=== PATIENT | female | born 1935 | race Caucasian/White ===

== ENCOUNTER 2018-12-12 16:17 | Emergency (ER) | payer OTHER ==
[~2018-12-12] VITALS: Ht 157.5 cm; Wt 52.2 kg
--- NOTE | 2018-12-12 18:45 | NUR ---
Patient discharged to home in stable conditon. Written and verbal after care instructions given. Patient AND verbalize understanding of instructions.WHEEL CHAIRED PT OUT TO CAR. Addendum: 12/12/18 at 1849 by ANGELA PT CONCERN ABOUT THE PT BP AT D/C,PER ER , PT NEEDS TO CONTINUE THE ROUTINE BP MED THAT IS DUE AT NIGHT AT HOME. PT DENEIS ANY DIZZINESS, HEADACHE OR N/V AT THIS TIME.
[2018-12-12 18:48] VITALS: BP 181/71
== END 2018-12-12 18:50 | disposition home or self-care (01) ==
LOC: ER 16:20
DX: S51.012A Laceration without foreign body of left elbow, initial encounter (principal); S30.0XXA Contusion of lower back and pelvis, initial encounter; M25.562 Pain in left knee; I48.91 Unspecified atrial fibrillation; E11.9 Type 2 diabetes mellitus without complications; Z91.048 Other nonmedicinal substance allergy status; W01.0XXA Fall on same level from slipping, tripping and stumbling without subsequent striking against object, initial encounter; Y93.89 Activity, other specified; Y92.89 Other specified places as the place of occurrence of the external cause; Y99.8 Other external cause status
CPT/HCPCS: 72131; 72170; 73080; A4217; A4663